=== PATIENT | female | born 1940 | race Caucasian/White ===

== ENCOUNTER → 2016-12-20 | Outpatient (CLI) | payer MEDICARE, OTHER | LOC: COL.VAS 14:26 | DX: R60.0 Localized edema (principal) ==

== ENCOUNTER 2024-02-06 08:02 | Day surgery (SDC) | payer MEDICARE ==
[2024-02-06] VITALS (12 sets, daily range): BP systolic 107–165; BP diastolic 64–92; PULSE 64–79; TEMP 98
[~2024-02-06] VITALS: Ht 165.1 cm; Wt 78.6 kg
[2024-02-06] MEDS ORDERED: 1/2 NS 1,000 ML IV SCH (08:30)
[2024-02-06 08:47] LABS: MEAN CELL VOLUME 83 fl (80.0-100.0); MEAN CORPUSCULAR HEMOGLOBIN 28 pg (27-31); MEAN CORPUSCULAR HGB CONC 33 g/dl (33.0-37.0); MEAN PLATELET VOLUME 10.5 fl (7.4-10.4); PLATELET COUNT 238 K/mm3 (130-400); RED BLOOD COUNT 5.04 M/mm3 (4.10-5.30); REDCELL DISTRIBUTION WIDTH-CV 13.6 % (11.5-14.5)
[2024-02-06 09:04] LABS: INR 1.1 (0.8-3.0); PROTHROMBIN TIME 11.6 SECONDS (9.7-12.8)
[2024-02-06 09:06] LABS: CREATININE, serum 0.79 mg/dL (0.57-1.11); PARTIAL THROMBOPLASTIN TIME 33.7 SECONDS (26.0-37.0); POTASSIUM 3.4 mEq/L (3.5-4.5)
[2024-02-06] MEDS ORDERED: NORVASC 5MG5 MG/TAB PO (09:31)
[2024-02-06] MEDS ORDERED: SYNTHROID 0.0.025 MG PO (09:32)
[2024-02-06] MEDS ORDERED: ASPIRIN E.C. 8181 MG PO (09:32)
[2024-02-06] MEDS ORDERED: HCTZ 25MG TAB25 MG PO (09:32)
[2024-02-06] MEDS ORDERED: TOPROL XL 25MG25 MG PO (09:33)
[2024-02-06] MEDS ORDERED: VITAMIN C500 MG PO (09:34)
[2024-02-06] MEDS ORDERED: VITAMIN E 400 U4001 PO (09:34)
[2024-02-06] MEDS ORDERED: B COMPLEX #11 TA1 PO (09:34)
[2024-02-06] MEDS ORDERED: K-DUR20 MEQ PO (09:34)
[2024-02-06] MEDS ORDERED: TYLENOL 325MG325 MG PO (09:35)
[2024-02-06] MEDS ORDERED: VITAMIN D31000 I1 PO (09:35)
[2024-02-06] MEDS ORDERED: BROMELAIN PO (09:36)
[2024-02-06] MEDS ORDERED: Heparin 1,000 UNITS/ML 10 ML Multi-Dose VIAL IV SCH (10:50)
[2024-02-06] MEDS ORDERED: Nitroglycerin 100 MCG/ML (Cath Lab) 10 ML VIAL IA SCH (10:50)
[2024-02-06] MEDS ORDERED: Verapamil 2.5 MG/ML 2 ML VIAL IA SCH (10:51)
--- NOTE | 2024-02-06 10:57 | NUR ---
See Merge Report for procedural notes/sedation
[2024-02-06] MEDS ORDERED: fentaNYL 50 MCG/ML 2 ML VIAL IV SCH (11:09)
[2024-02-06] MEDS ORDERED: Midazolam 2 MG/2 ML VIAL IV SCH (11:09)
[2024-02-06] MEDS ORDERED: Iohexol 350 - 100 ML VIAL INCOR ONE (11:11)
[2024-02-06] MEDS ORDERED: ENTRESTO 24 MG1 EACH PO (11:39)
[2024-02-06] MEDS ORDERED: COZAAR 50MG50 MG/TAB PO (13:37)
--- NOTE | 2024-02-06 15:20 | NUR ---
Air was removed in 2 ml increments from TR band starting at 1130. Start of air removal was delayed slightly as pt had had small ooze from site prior to initiation of air removal. No complications or further bleeding from site with air removal. Radial site dressed with folded gauze and bandaid. DC instructions reviewed with pt and daughter, both express understanding. Pt assisted to restroom with x1 assist, gait is at baseline, guarded due to some chronic back pain. Pt ate meal tray during recovery period and otherwise was without complaint. IV DC'd, site wrapped with coban. She is assisted out to daughter's car by wheelchair with belongings.
== END 2024-02-06 15:20 | disposition home or self-care (01) ==
LOC: COL.CAR 08:02
PROVIDERS: Internal Medicine Cardiovascular Disease
DX: I25.10 Atherosclerotic heart disease of native coronary artery without angina pectoris (principal); I42.9 Cardiomyopathy, unspecified
CPT/HCPCS: J1644; J2250; J3010; Q9967